=== PATIENT | male | born 1955 | race Caucasian/White ===

== ENCOUNTER 2024-10-05 03:27 | Emergency (ER) | payer BC, OTHER ==
--- OUTSIDE RECORDS SUMMARY | 2024-10-05 03:29 | XMS REPORT | Continuity of Care Document ---
Author Name Unknown Address [address] [facility] [place] [address] [facility] thconnect Address [address] [facility] [address] [place] [address] Care Team Providers Care Law Office Receptionist Name Role Phone Addy Robles Primary Care Physician [phone] Addy Robles Attending Clinician Unavailable DAVID WYATT Attending Clinician Unavailable Hussein JI, David Attending Clinician [phone] Kelsey Phelan Attending Clinician [phone] Doctor Unassigned, [place] Attending Clinician U Shraddha Jacob Attending Clinician [phone] Unknown, Attending Attending Clinician Unavailab le Payers Payer Name Policy Type Policy Number Effective Date Expirati on Date Source [facility] [employer] TRS/ERS [facility] PPO 1 [id number] 2024 00:00:00 [facility] Blue Cross Blue Shield HMO 6 [id number] 2017 00:00:00 [facility] HEALTH SELECT [id number] 00:00:00 Problems Condition Name Condition Details Condition Category Status Onset Date Resolution Date Last Treatment Date Treating Clinician Comments Source Right knee pain Right knee pain Disease Active 2015-10 00:00: 00 [facility] [id number] Glaucoma of left eye, unspecifie d glaucoma type Problem [facility] [id number] Type 2 diabetes mellitus with hyperglyce china, without long-term current use of insulin Problem [facility] [id number] Morbid (severe) obesity due to excess calories Problem [facility] [id number] Hypertrigl yceridemia Problem [facility] [id number] Essential hypertensi on Problem [facility] [id number] Body mass index [BMI] 38.0-38.9, adult Problem [facility] Allergies, Adverse Reactions, Alerts Allergy Name Allergy Type Status Severity Reaction(s) Onset Date Inactive Date Treating Clinician Comments Source NO KNOWN ALLERGIE S Drug Class Active [facility] Social History Social Habit Start Date Stop Date Quantity Comments Source History of Tobacco Use [facility] Sex Assigned At [facility] Exposure to SARS-CoV-2 (event) Not sure [facility] Alcohol intake 2022-01-02 00:00:00 2022-01-02 00:00:00 0 /d [facility] Tobacco use and exposure 2016-06-21 00:00:00 2016-06-21 00:00:00 Never used [facility] Smoking Status Start Date Stop Date Source Never Smoker [facility] Medications Ordered Medication Name Filled Medication Name Start Date Stop Date Current Medication? Ordering Clinician Indication Dosage Frequency Signature (SIG) Comments Components Source mupirocin 2 % ointment 01-02 00:00: 00 Yes [id number] Apply to area(s) 3 (three) times daily. [facility] sulfamethox azole-trime thoprim (BACTRIM DS) 800-160 mg per tablet 06-29 00:00: 00 07-07 04:59 :00 No [id number] 1{tbl} Take 1 tablet by mouth 2 (two) times daily for 7 days. [facility] cyclobenzap rine (FLEXERIL) 10 mg tablet 06-15 00:00: 00 Yes TK 1 T PO TID PRN [facility] Latanoprost 0.005 % Latanoprost 0.005 % No 1{drop_ into_af fected_ eye_in_ the_eve liz} QD Latanopros t 0.005 % Lisinopril 10 MG Lisinopril 10 MG No 1{table t} QD Lisinopril 10 MG Immunizations Ordered Immunization Name Filled Immunization Name Date Status Comments Source TDAP 2022-01-02 00:00:00 Completed [facility] COVID-19 Vaccine (Kael) COVID-19 Vaccine (Kael) 2020-12-26 14:41:00 Completed [facility] COVID-19 Vaccine (Kael) COVID-19 Vaccine (Kael) 2020-12-26 14:41:00 Completed [facility] COVID-19 Vaccine (Kael) COVID-19 Vaccine (Kael) 2020-12-26 14:41:00 Completed [facility] COVID-19 Vaccine (Kael) COVID-19 Vaccine (Kael) 2020-12-26 14:41:00 Completed [facility] Shingrix Shingrix 2020-12-26 09:03:00 Completed [facility] Shingrix Shingrix 2020-12-26 09:03:00 Completed [facility] Shingrix Shingrix 2020-12-26 09:03:00 Completed [facility] Shingrix Shingrix 2020-12-26 09:03:00 Completed [facility] FluAD FluAD 2020-08-14 09:02:00 Completed [facility] FluAD FluAD 2020-08-14 09:02:00 Completed [facility] FluAD FluAD 2020-08-14 09:02:00 Completed [facility] FluAD FluAD 2020-08-14 09:02:00 Completed [facility] Pneumovax (PPSV23) Pneumovax (PPSV23) 2019-10-13 09:03:00 Completed [facility] Pneumovax (PPSV23) Pneumovax (PPSV23) 2019-10-13 09:03:00 Completed [facility] Pneumovax (PPSV23) Pneumovax (PPSV23) 2019-10-13 09:03:00 Completed [facility] Pneumovax (PPSV23) Pneumovax (PPSV23) 2019-10-13 09:03:00 Completed [facility] Prevnar 13 (PCV13) Prevnar 13 (PCV13) 2019-10-13 09:02:00 Completed [facility] Prevnar 13 (PCV13) Prevnar 13 (PCV13) 2019-10-13 09:02:00 Completed [facility] Prevnar 13 (PCV13) Prevnar 13 (PCV13) 2019-10-13 09:02:00 Completed [facility] Prevnar 13 (PCV13) Prevnar 13 (PCV13) 2019-10-13 09:02:00 Completed [facility] COVID-19 Vaccine (Kael) COVID-19 Vaccine (Kael) Unknown Completed [facility] FluAD FluAD Unknown Completed [facility] Shingrix Shingrix Unknown Completed [facility] Pneumovax (PPSV23) Pneumovax (PPSV23) Unknown Completed [facility] Prevnar 13 (PCV13) Prevnar 13 (PCV13) Unknown Completed [facility] COVID-19 Vaccine (Kael) COVID-19 Vaccine (Kael) Unknown Completed [facility] FluAD FluAD Unknown Completed [facility] Shingrix Shingrix Unknown Completed [facility] Pneumovax (PPSV23) Pneumovax (PPSV23) Unknown Completed [facility] Prevnar 13 (PCV13) Prevnar 13 (PCV13) Unknown Completed [facility] COVID-19 Vaccine (Kael) COVID-19 Vaccine (Kael) Unknown Completed [facility] FluAD FluAD Unknown Completed [facility] Shingrix Shingrix Unknown Completed [facility] Pneumovax (PPSV23) Pneumovax (PPSV23) Unknown Completed [facility] Prevnar 13 (PCV13) Prevnar 13 (PCV13) Unknown Completed [facility] COVID-19 Vaccine (Kael) COVID-19 Vaccine (Kael) Unknown Completed [facility] FluAD FluAD Unknown Completed [facility] Shingrix Shingrix Unknown Completed [facility] Pneumovax (PPSV23) Pneumovax (PPSV23) Unknown Completed [facility] Prevnar 13 (PCV13) Prevnar 13 (PCV13) Unknown Completed [facility] COVID-19 Vaccine (Kael) COVID-19 Vaccine (Kael) Unknown Completed [facility] FluAD FluAD Unknown Completed [facility] Shingrix Shingrix Unknown Completed [facility] Pneumovax (PPSV23) Pneumovax (PPSV23) Unknown Completed [facility] Prevnar 13 (PCV13) Prevnar 13 (PCV13) Unknown Completed [facility] Fluad (aIIV4) - SDS - 0.5mL Fluad (aIIV4) - SDS - 0.5mL Unknown Completed [facility] COVID-19 Vaccine (Kael) COVID-19 Vaccine (Kael) Unknown Completed [facility] FluAD FluAD Unknown Completed [facility] Shingrix Shingrix Unknown Completed [facility] Pneumovax (PPSV23) Pneumovax (PPSV23) Unknown Completed [facility] Prevnar 13 (PCV13) Prevnar 13 (PCV13) Unknown Completed [facility] Fluad (aIIV4) - SDS - 0.5mL Fluad (aIIV4) - SDS - 0.5mL Unknown Completed [facility] COVID-19 Vaccine (Kael) COVID-19 Vaccine (Kael) Unknown Completed [facility] FluAD FluAD Unknown Completed [facility] Shingrix Shingrix Unknown Completed [facility] Pneumovax (PPSV23) Pneumovax (PPSV23) Unknown Completed [facility] Prevnar 13 (PCV13) Prevnar 13 (PCV13) Unknown Completed [facility] Fluad (aIIV4) - SDS - 0.5mL Fluad (aIIV4) - SDS - 0.5mL Unknown Completed [facility] COVID-19 Vaccine (Kael) COVID-19 Vaccine (Kael) Unknown Completed [facility] FluAD FluAD Unknown Completed [facility] Shingrix Shingrix Unknown Completed [facility] Pneumovax (PPSV23) Pneumovax (PPSV23) Unknown Completed [facility] Prevnar 13 (PCV13) Prevnar 13 (PCV13) Unknown Completed [facility] Fluad (aIIV4) - SDS - 0.5mL Fluad (aIIV4) - SDS - 0.5mL Unknown Completed [facility] COVID-19 Vaccine (Kael) COVID-19 Vaccine (Kael) Unknown Completed [facility] FluAD FluAD Unknown Completed [facility] Shingrix Shingrix Unknown Completed [facility] Pneumovax (PPSV23) Pneumovax (PPSV23) Unknown Completed [facility] Prevnar 13 (PCV13) Prevnar 13 (PCV13) Unknown Completed [facility] Vital Signs Vital Name Observation Time Observation Value Comments S ource height 2024-05-08 08:30:00 73 [in_i] Commo n [facility] weight 2024-05-08 08:30:00 279.6 [lb_av] Co mmon [facility] temperature 2024-05-08 08:30:00 97.2 [degF] Com mon [facility] bmi 2024-05-08 08:30:00 36.88 kg/m2 Comm on [facility] oximetry 2024-05-08 08:30:00 96 % Commo n [facility] blood pressure systolic 2024-05-08 08:30:00 170 mm[Hg[facility] diastolic 2024-05-08 08:30:00 100 mm[Hg] [facility] height 2024-02-14 11:30:00 73 [in_i] Commo n [facility] weight 2024-02-14 11:30:00 277 [lb_av] Comm on [facility] temperature 2024-02-14 11:30:00 97.5 [degF] Com mon [facility] bmi 2024-02-14 11:30:00 36.54 kg/m2 Comm on [facility] oximetry 2024-02-14 11:30:00 95 % Commo n [facility] respiratory rate 2024-02-14 11:30:00 18 /min Common [facility] blood pressure systolic 2024-02-14 11:30:00 215 mm[Hg] [facility] blood pressure diastolic 2024-02-14 11:30:00 97 mm[Hg] [facility] height 2023-11-08 09:30:00 73 [in_i] Commo n [facility] weight 2023-11-08 09:30:00 277 [lb_av] Comm on [facility] temperature 2023-11-08 09:30:00 97 [degF] Comm on [facility] bmi 2023-11-08 09:30:00 36.54 kg/m2 Comm on [facility] oximetry 2023-11-08 09:30:00 93 % Commo n [facility] blood pressure systolic 2023-11-08 09:30:00 138 mm[Hg] [facility] blood pressure diastolic 2023-11-08 09:30:00 80 mm[Hg] [facility] height 2023-11-08 09:30:00 73 [in_i] Commo n [facility] weight 2023-11-08 09:30:00 277 [lb_av] Comm on [facility] temperature 2023-11-08 09:30:00 97 [degF] Comm on [facility] bmi 2023-11-08 09:30:00 36.54 kg/m2 Comm on [facility] oximetry 2023-11-08 09:30:00 93 % Commo n [facility] blood pressure systolic 2023-11-08 09:30:00 138 mm[Hg] Common [facility] blood pressure diastolic 2023-11-08 09:30:00 80 mm[Hg] [facility] height 2023-06-24 15:40:00 73 [in_i] Commo n [facility] weight 2023-06-24 15:40:00 278.0 [lb_av] Co mmon [facility] temperature 2023-06-24 15:40:00 97.9 [degF] Com mon [facility] bmi 2023-06-24 15:40:00 36.67 kg/m2 Comm on [facility] oximetry 2023-06-24 15:40:00 97 % Commo n [facility] respiratory rate 2023-06-24 15:40:00 18 /min [facility] blood pressure systolic 2023-06-24 15:40:00 131 mm[Hg] [facility] blood pressure diastolic 2023-06-24 15:40:00 77 mm[Hg] [facility] height 2022-12-07 09:50:00 73 [in_i] Commo n [facility] weight 2022-12-07 09:50:00 275 [lb_av] Comm on [facility] temperature 2022-12-07 09:50:00 97.8 [degF] Com mon [facility] bmi 2022-12-07 09:50:00 36.28 kg/m2 Comm on [facility] blood pressure systolic 2022-12-07 09:50:00 135 mm[Hg] Common [facility] blood pressure diastolic 2022-12-07 09:50:00 76 mm[Hg] [facility] height 2022-03-02 08:30:00 73 [in_i] Commo n [facility] weight 2022-03-02 08:30:00 282.8 [lb_av] Co mmon [facility] temperature 2022-03-02 08:30:00 97.9 [degF] Com mon [facility] bmi 2022-03-02 08:30:00 37.31 kg/m2 Comm on [facility] oximetry 2022-03-02 08:30:00 94 % Commo n [facility] respiratory rate 2022-03-02 08:30:00 16 /min [facility] blood pressure systolic 2022-03-02 08:30:00 138 mm[Hg] [facility] blood pressure diastolic 2022-03-02 08:30:00 78 mm[Hg] [facility] Systolic blood pressure 2022-01-03 00:36:00 170 mm[Hg] [facility] Diastolic blood pressure 2022-01-03 00:36:00 85 mm[Hg] [place] [facility] Heart rate 2022-01-03 00:34:00 63 /min [facility] Body temperature 2022-01-03 00:34:00 37 Jaclyn [facility] Respiratory rate 2022-01-03 00:34:00 18 /min [facility] Body height 2022-01-03 00:34:00 185.4 cm [facility] Body weight 2022-01-03 00:34:00 133.358 kg [facility] BMI 2022-01-03 00:34:00 38.79 kg/m2 [facility] Oxygen saturation in Arterial blood by Pulse oximetry 2022-01-03 00:34:00 96 /min [facility] height 2021-12-08 08:50:00 73 [in_i] Commo n [facility] weight 2021-12-08 08:50:00 285.3 [lb_av] Co on [facility] temperature 2021-12-08 08:50:00 97.9 [degF] Com [facility] bmi 2021-12-08 08:50:00 37.64 kg/m2 Comm on [facility] oximetry 2021-12-08 08:50:00 96 % Commo n [facility] respiratory rate 2021-12-08 08:50:00 16 /min [facility] blood pressure systolic 2021-12-08 08:50:00 132 mm[Hg] [facility] blood pressure diastolic 2021-12-08 08:50:00 88 mm[Hg] [facility] height 2020-12-26 09:00:00 73 [in_i] Commo n [facility] weight 2020-12-26 09:00:00 288.9 [lb_av] Co mmon [facility] temperature 2020-12-26 09:00:00 97.0 [degF] Com mon [facility] bmi 2020-12-26 09:00:00 38.11 kg/m2 Comm on [facility] oximetry 2020-12-26 09:00:00 95 % Commo n [facility] respiratory rate 2020-12-26 09:00:00 17 /min [facility] blood pressure systolic 2020-12-26 09:00:00 138 mm[Hg] [facility] blood pressure diastolic 2020-12-26 09:00:00 83 mm[Hg] [facility] Systolic blood pressure 2019-06-30 00:12:00 149 mm[Hg] [facility] Diastolic blood pressure 2019-06-30 00:12:00 80 mm[Hg] [facility] Heart rate 2019-06-30 00:10:00 62 /min [facility] Body temperature 2019-06-30 00:10:00 36.67 Jaclyn [facility] Respiratory rate 2019-06-30 00:10:00 18 /min [facility] Body height 2019-06-30 00:10:00 185.4 cm [facility] Body weight 2019-06-30 00:10:00 133.72 kg [facility] BMI 2019-06-30 00:10:00 38.89 kg/m2 [facility] Oxygen saturation in Arterial blood by Pulse oximetry 2019-06-30 00:10:00 96 /min [facility] Procedures Procedure Date / Time Performed Performing Clinicia n Source TDAP VACCINE, >11 YRS, IM 2022-01-03 00:42:04 David Wyatt [facility] ASSIGNMENT OF BENEFITS 2022-01-03 00:29:54 Docto r Unassigned, [place] [facility] ASSIGNMENT OF BENEFITS 2019-06-29 23:57:51 Docto r Unassigned, [place] [facility] Encounters Start Date/Time End Date/Time Encounter Type Admission Type Attending Clinicians Care Facility Care Department Encounter ID Source 2024-05-05 16:09:00 [id number] [facility] 2024-02-14 11:38:00 [facility] [id number] [facility] 2022-02-28 10:14:08 [facility] [id number] [facility] 2021-11-08 13:02:21 Outpatient Addy Robles [facility] [id number] [facility] 2021-11-08 12:42:18 Outpatient Addy Robles [facility] [id number] [facility] 2024-08-21 00:00:00 2024-08-21 00:00:00 (TEL) [facility] [id number] [facility] 2024-08-14 00:00:00 2024-08-14 00:00:00 (WEB) [facility] [id number] [facility] 2024-05-08 00:00:00 2024-05-08 00:00:00 (WELLNESS) Wellness Visit [facility] [id number] [facility] 2024-02-14 00:00:00 2024-02-14 00:00:00 (TEL) [facility] [id number] [facility] 2024-02-14 00:00:00 2024-02-14 00:00:00 OFFICE VISIT ESTAB PT LEVEL 2 [facility] [id number] [facility] 2023-11-08 00:00:00 2023-11-08 00:00:00 OFFICE VISIT ESTAB PT LEVEL 4 [facility] [id number] [facility] 2023-08-27 00:00:00 2023-08-27 00:00:00 (WEB) [facility] [id number] [facility] 2023-06-24 00:00:00 2023-06-24 00:00:00 PREV VISIT EST AGE 65 & OVER [facility] [id number] [facility] 2023-04-02 00:00:00 2023-04-02 00:00:00 (TEL) [facility] [id number] [facility] 2022-12-07 00:00:00 2022-12-07 00:00:00 OFFICE VISIT ESTAB PT LEVEL 3 [facility] [id number] [facility] 2022-11-26 00:00:00 2022-11-26 00:00:00 (TEL) [facility] [id number] [facility] 2022-03-02 00:00:00 2022-03-02 00:00:00 PREV VISIT EST AGE 65 & OVER [facility] [id number] [facility] 2022-01-02 19:40:00 2022-01-02 19:43:16 Outpatient R DAVID WYATT [facility] [id number] [facility] 2022-01-02 19:40:00 2022-01-02 19:43:16 Urgent Care David Wyatt, [facility] [id number] [facility] 2022-01-02 00:00:00 2022-01-02 00:00:00 Orders Only Doctor Unassigned, [place] [facility] [id number] [facility] 2021-12-08 00:00:00 2021-12-08 00:00:00 OFFICE VISIT EST PT LEVEL 3 [facility] [id number] [facility] 2021-02-24 00:00:00 2021-02-24 00:00:00 Outpatient [facility] [id number] [facility] 2020-12-26 00:00:00 2020-12-26 00:00:00 OFFICE VISIT NEW PT LEVEL 3 [facility] [id number] [facility] 2020-12-26 00:00:00 2020-12-26 00:00:00 (INJ) Injection [facility] [id number] [facility] 2019-06-29 19:00:17 2019-06-29 19:45:27 Urgent Care Shraddha Miller Unknown, Attending [facility] mariana Jacobo [id number] [facility] 2019-06-29 00:00:00 2019-06-29 00:00:00 Orders Only Doctor Unassigned, [place] [facility] [id number] [facility] Results Test Description Test Time Test Comments Results Result Co mments Source CBC W/AUTO [id number] 00:00:00* Test Item Value Reference Range Interpretation Comme nts NUCLEATED RBCS (test code = 10549-1) 0.0 /100 WBC'S See_Comment [Automated messa ge] The system which generated this result transmitted reference range: 0.0 /100 WBC'S. The reference range was not used to interpret this result as normal/abnormal. ABSOLUTE EOSINOPHILS (test code = 63545-0) 0.27 K/UL See_Comment [Automated messa ge] The system which generated this result transmitted reference range: 0.00-0.50 K/UL. The reference range was not used to interpret this result as normal/abnormal. ABSOLUTE LYMPHOCYTES (test code = 07525-1) 1.85 K/UL See_Comment [Automated messa ge] The system which generated this result transmitted reference range: 1.00-4.00 K/UL. The reference range was not used to interpret this result as normal/abnormal. ABSOLUTE MONOCYTES (test code = 76193-7) 0.53 K/UL See_Comment [Automated messa ge] The system which generated this result transmitted reference range: 0.20-1.00 K/UL. The reference range was not used to interpret this result as normal/abnormal. ABSOLUTE NEUTROPHILS (test code = 46187-5) 3.62 K/UL See_Comment [Automated messa ge] The system which generated this result transmitted reference range: 1.50-7.50 K/UL. The reference range was not used to interpret this result as normal/abnormal. BASOPHILS (test code = 61071-0) 0.8 % EOSINOPHILS (test code = 86376-4) 4.3 % HEMATOCRIT (test code = 53838-5) 42.2 % See_Comment [Automated messa ge] The system which generated this result transmitted reference range: 40.0-51.0 %. The reference range was not used to interpret this result as normal/abnormal. HEMOGLOBIN (test code = 718-7) 14.8 G/DL See_Comment [Automated messa ge] The system which generated this result transmitted reference range: 13.5-17.0 G/DL. The reference range was not used to interpret this result as normal/abnormal. LYMPHOCYTES (test code = 97943-6) 29.2 % MCH (test code = 19960-4) 31.1 PG See_Comment [Automated messa ge] The system which generated this result transmitted reference range: 25.0-33.0 PG. The reference range was not used to interpret this result as normal/abnormal. MCHC (test code = 62987-7) 35.1 G/DL See_Comment [Automated messa ge] The system which generated this result transmitted reference range: 31.0-36.0 G/DL. The reference range was not used to interpret this result as normal/abnormal. MCV (test code = 45740-1) 88.7 fL See_Comment [Automated messa ge] The system which generated this result transmitted reference range: 80.0-99.0 fL. The reference range was not used to interpret this result as normal/abnormal. MONOCYTES (test code = 25457-9) 8.4 % NEUTROPHILS (test code = 79799-3) 57.1 % PLATELET COUNT (test code = 75883-3) 236 K/UL See_Comment [Automated messa ge] The system which generated this result transmitted reference range: 130-400 K/UL. The reference range was not used to interpret this result as normal/abnormal. RBC (test code = 55813-0) 4.76 M/UL See_Comment [Automated messa ge] The system which generated this result transmitted reference range: 4.50-6.10 M/UL. The reference range was not used to interpret this result as normal/abnormal. RDW (test code = 86066-1) 12.4 % See_Comment [Automated [employer]] The system which generated this result transmitted reference range: 11.5-15.0 %. The reference range was not used to interpret this result as normal/abnormal. WBC (test code = 03085-7) 6.3 K/UL See_Comment [Automated [employer]] The system which generated this result transmitted reference range: 3.5-11.0 K/UL. The reference range was not used to interpret this result as normal/abnormal.
[2024-10-05] MEDS ORDERED: dexAMETHasone 10 MG/ML VIAL ONE (03:55)
[2024-10-05] MEDS ORDERED: COLCHICINE 0.6 MG TAB ONE (03:55)
--- NOTE | 2024-10-05 04:39 | ER ---
Nurse's Notes [facility] Name: Marlo Maxwell Age: 69 yrs Sex: Male : 1955 Arrival Date: 10/05/2024 Time: 03:27 Bed 7 Private MD: Diagnosis: Gout, unspecified Presentation: 10/05 03:41 Chief complaint: Patient states: Left hand swollen and painful, similar to previous vc1 diagnostic of gout in right hand. Coronavirus screen: Client denies travel out of the [place] in the last 14 days. At this time, the client does not indicate any symptoms associated with coronavirus-19. Ebola Screen: Patient negative for fever greater than or equal to 101.5 degrees Fahrenheit, and additional compatible Ebola Virus Disease symptoms Patient denies exposure to infectious person. Patient denies travel to an Ebola-affected area in the 21 days before illness onset. No symptoms or risks identified at this time. Initial Sepsis Screen: Does the patient meet any 2 criteria? No. Patient's initial sepsis screen is negative. Does the patient have a suspected source of infection? No. Patient's initial sepsis screen is negative. Risk Assessment: Do you want to hurt yourself or someone else? Patient reports no desire to harm self or others. Onset of symptoms was October 02, 2024. 03:41 Method Of Arrival: Ambulatory vc1 03:41 Acuity: SANDIP 3 vc1 Triage Assessment: 03:47 General: Appears in no apparent distress. comfortable, well groomed, well developed, vc1 well nourished, Behavior is calm, cooperative, appropriate for age. Pain: Complains of pain in left hand Pain does not radiate. Pain currently is 7 out of 10 on a pain scale. at worst was 8 out of 10 on a pain scale. EENT: No deficits noted. No signs and/or symptoms were reported regarding the EENT system. Neuro: Level of Consciousness is awake, alert, obeys commands, Oriented to person, place, time, situation, Appropriate for age. Cardiovascular: Capillary refill < 3 seconds Patient's skin is warm and dry. Respiratory: Airway is patent Respiratory effort is even, unlabored, Respiratory pattern is regular, symmetrical. GI: No deficits noted. No signs and/or symptoms were reported involving the gastrointestinal system. : No deficits noted. No signs and/or symptoms were reported regarding the genitourinary system. Derm: Skin is intact, is healthy with good turgor, Skin is dry, Skin is normal, Skin temperature is warm. Musculoskeletal: Swelling present in left hand. Historical: - Allergies: 03:44 No Known Allergies; vc1 - Home Meds: 03:44 lisinopril 10 mg Oral tablet daily [Active]; vc1 - PMHx: 03:44 Hypertensive disorder; vc1 - PSHx: 03:44 Appendectomy; vc1 - Immunization history:: Client reports receiving the 2nd dose of the Covid vaccine, Flu vaccine is not up to date. - Infectious Disease History:: Denies. - Social history:: Smoking status: Patient denies any tobacco usage or history of. - Family history:: not pertinent. - Hospitalizations: : No recent hospitalization is reported. Screenin:46 [facility] ED Fall Risk Assessment (Adult) History of falling in the last 3 months, vc1 including since admission No falls in past 3 months (0 pts) Confusion or Disorientation No (0 pts) Intoxicated or Sedated No (0 pts) Impaired Gait No (0 pts) Mobility Assist Device Used No (0 pt) Altered Elimination No (0 pt) Score/Fall Risk Level 0 - 2 = Low Risk Oriented to surroundings, Maintained a safe environment, Educated pt \T\ family on fall prevention, incl call for assistance when getting out of bed. Abuse screen: Denies threats or abuse. Nutritional screening: No deficits noted. Tuberculosis screening: No symptoms or risk factors identified. Assessment: 03:49 General: Appears in no apparent distress. uncomfortable, Behavior is calm, cooperative, cp4 appropriate for age. Pain: Complains of pain in left hand Pain does not radiate. Pain currently is 8 out of 10 on a pain scale. Neuro: Level of Consciousness is awake, alert, obeys commands, Oriented to person, place, time, situation. Cardiovascular: Patient's skin is warm and dry. Respiratory: Airway is patent Respiratory effort is even, unlabored. GI: No signs and/or symptoms were reported involving the gastrointestinal system. : No signs and/or symptoms were reported regarding the genitourinary system. EENT: No signs and/or symptoms were reported regarding the EENT system. Derm: No signs and/or symptoms reported regarding the dermatologic system. Musculoskeletal: Reports pain in left hand. Vital Signs: 03:41 BP 206 / 98; Pulse 63; Resp 17; Temp 97.7; Pulse Ox 93% ; Weight 127.01 kg; Height 6 vc1 ft. 1 in. ; Pain 8/10; 04:44 BP 174 / 93; Pulse 65; Resp 18; Pulse Ox 95% ; cp4 03:41 Body Mass Index 36.94 (127.01 kg, 185.42 cm) vc1 03:41 Pain Scale: Adult vc1 ED Course: 03:30 Patient arrived in ED. rn 03:30 Fortunato Bergeron MD is Attending Physician. rn 03:44 Triage completed. vc1 03:46 Arm band placed on right wrist. vc1 03:47 Patient has correct armband on for positive identification. Bed in low position. Call vc1 light in reach. Pulse ox on. NIBP on. 03:48 Yocasta Epstein is Primary Nurse. cp4 03:49 Provided Education on: call light. vc1 03:49 No provider procedures requiring assistance completed. cp4 04:45 Patient did not have IV access during this emergency room visit. cp4 Administered Medications: 04:01 Drug: Dexamethasone IM 10 mg IM once Route: IM; Site: left ventrogluteal; cp4 04:45 Follow up: Response: No adverse reaction cp4 04:02 Drug: Colchicine-Probenecid PO 2 tabs PO once Route: PO; cp4 04:45 Follow up: Response: No adverse reaction cp4 Medication: 03:49 VIS not applicable for this client. vc1 Outcome: 04:38 Discharge ordered by . rn 04:45 Discharged to home ambulatory, cp4 04:45 Condition: stable 04:45 Discharge instructions given to patient, family, Instructed on discharge instructions, follow up and referral plans. medication usage, Demonstrated understanding of instructions, follow-up care, medications, Prescriptions given X 2, 04:46 Patient left the ED. cp4 Signatures: Fortunato Bergeron MD MD rn Calcote, Vanessa, RN RN vc1 Yocasta Epstein cp4
--- NOTE | 2024-10-05 04:39 | EDPHYS ---
Physician Documentation [facility] Name: Marlo Maxwell Age: 69 yrs Sex: Male : 1955 Arrival Date: 10/05/2024 Time: 03:27 Bed 7 Private MD: ED Physician Fortunato Bergeron HPI: 10/05 04:03 This 69 yrs old Male presents to ER via Ambulatory with complaints of Hand Pain, Hand rn Swelling. 04:03 The patient or guardian reports pain. The complaints affect the [facility] of left thumb. rn Onset: The symptoms/episode began/occurred yesterday. Associated signs and symptoms: Pertinent negatives: cyanosis distally, decreased sensation distally, fever, numbness distally. Severity of symptoms: At their worst the symptoms were moderate, in the emergency department the symptoms are unchanged. The patient has not experienced similar symptoms in the past. The patient has not recently seen a physician. Patient reports pain in left wrist and hand. Had identical problem a few years ago and was diagnosed with gout by his PCP. Reports took colchicine and symptoms improved. Denies any fever or chills. No IV drug use. Not diabetic. No fever. No trauma. No deformity.. Historical: - Allergies: 03:44 No Known Allergies; vc1 - Home Meds: 03:44 lisinopril 10 mg Oral tablet daily [Active]; vc1 - PMHx: 03:44 Hypertensive disorder; vc1 - PSHx: 03:44 Appendectomy; vc1 - Immunization history:: Client reports receiving the 2nd dose of the Covid vaccine, Flu vaccine is not up to date. - Infectious Disease History:: Denies. - Social history:: Smoking status: Patient denies any tobacco usage or history of. - Family history:: not pertinent. - Hospitalizations: : No recent hospitalization is reported. ROS: 04:03 Constitutional: Negative for fever, chills, and weight loss, Cardiovascular: Negative rn for chest pain, palpitations, and edema, Respiratory: Negative for shortness of breath, cough, wheezing, and pleuritic chest pain, Abdomen/GI: Negative for abdominal pain, nausea, vomiting, diarrhea, and constipation, Back: Negative for injury and pain, MS/Extremity: Positive for left wrist pain Skin: Negative for injury, rash, and discoloration, Neuro: Negative for headache, weakness, numbness, tingling, and seizure, Exam: 04:03 Constitutional: This is a well developed, well nourished patient who is awake, alert, rn and in no acute distress. MS/ Extremity: Pulses equal, no cyanosis. Neurovascular intact. Mild painful range of motion with dorsiflexion of the left wrist. No focal bony tenderness. No significant swelling. No signs of lymphangitis or infection. No open wounds. Vital Signs: 03:41 BP 206 / 98; Pulse 63; Resp 17; Temp 97.7; Pulse Ox 93% ; Weight 127.01 kg; Height 6 vc1 ft. 1 in. ; Pain 8/10; 04:44 BP 174 / 93; Pulse 65; Resp 18; Pulse Ox 95% ; cp4 03:41 Body Mass Index 36.94 (127.01 kg, 185.42 cm) vc1 03:41 Pain Scale: Adult vc1 MDM: 03:30 Medical Screening Exam initiated rn 04:36 Differential diagnosis: Gout, inflammatory arthritis, pseudogout. Data reviewed: vital rn signs, nurses notes, and as a result, I will discharge patient. Counseling: I had a detailed discussion with the patient and/or guardian regarding the historical points, exam findings, and any diagnostic results supporting the discharge/admit diagnosis, the need for outpatient follow up, to return to the emergency department if symptoms worsen or persist or if there are any questions or concerns that arise at home. Special discussion: I discussed with the patient/guardian in detail that at this point there is no indication for admission to the hospital. It is understood, however, that if the symptoms persist or worsen the patient needs to return immediately for re-evaluation. ED course: Patient feels better, asking to go home. Will discharge home with colchicine and steroids.. Administered Medications: 04:01 Drug: Dexamethasone IM 10 mg IM once Route: IM; Site: left ventrogluteal; cp4 04:45 Follow up: Response: No adverse reaction cp4 04:02 Drug: Colchicine-Probenecid PO 2 tabs PO once Route: PO; cp4 04:45 Follow up: Response: No adverse reaction cp4 Disposition Summary: 10/05/24 04:38 Discharge Ordered Notes: Location: Home rn Problem: new rn Symptoms: have improved rn Condition: Stable rn Diagnosis - Gout, unspecified rn Followup: rn - With: Private Physician - When: As needed - Reason: Recheck today's complaints, Re-evaluation by your physician Discharge Instructions: - Discharge Summary Sheet rn - Gout rn Forms: - Medication Reconciliation Form rn - Antibiotic rn office - Prescription Opioid Use rn - Patient Portal Instructions rn - Leadership Thank You Letter rn Prescriptions: - colchicine 0.6 mg Oral tablet - take 1 tablet ORAL route daily As needed; 3 tablet; Refills: 0, Product rn Selection Permitted - Medrol (Tom) 4 mg Oral Tablets, Dose Pack - take 1 tablet ORAL route as directed - follow package instructions; 1 packet; rn Refills: 0, Product Selection Permitted Signatures: Fortunato Bergeron MD MD rn Calcote, Vanessa, RN RN vc1 Yocasta Epstein cp4
[2024-10-05 04:56] VITALS: BP 174/93; TEMP 97.7; O2SAT 95
== END 2024-10-05 04:46 | disposition home or self-care (01) ==
LOC: ER 03:27
DX: M10.9 Gout, unspecified (principal); I10 Essential (primary) hypertension
CPT/HCPCS: 96372; 99284; J1100